=== PATIENT | female | born 2000 | race Caucasian/White ===

== ENCOUNTER 2022-05-23 11:13 | Inpatient (IN) | payer MEDICAID ==
[2022-05-23] MEDS ORDERED: Morphine 4 MG/ML VIAL ONE ×2 (11:54→12:40)
[2022-05-23] MEDS ORDERED: fentaNYL Citrate/PF 100 MCG/2 ML SYRINGE ONE (14:50)
[2022-05-23] MEDS ORDERED: Clindamycin/D5W 900 mg/50 ml Premix Bag ONE (15:07)
[2022-05-23] MEDS ORDERED: Levofloxacin 500 mg/D5W 100 ml Premix Bag ONE (15:07)
[2022-05-23] MEDS ORDERED: Dextrose 5% in Water 1,000 ML IV PRN ×2 (15:08→17:35)
[2022-05-23] MEDS ORDERED: TETANUS, DIPHTHERIA TOX,ADULT (TDVAX) 0.5 ML VIAL IM ONE (15:08)
[2022-05-23] MEDS ORDERED: Dextrose 50% Abboject 50 ML SYRINGE SLOW IVP PRN ×2 (15:08→17:35)
[2022-05-23] MEDS ORDERED: Morphine 2 MG/ML VIAL SLOW IVP PRN ×2 (15:09→17:35)
[2022-05-23] MEDS ORDERED: hydrALAZINE 20 MG/ML VIAL SLOW IVP PRN ×3 (15:09→17:35)
[2022-05-23] MEDS ORDERED: Insulin Regular 300 UNITS/3 ML VIAL SC PRN ×2 (15:09→17:35)
[2022-05-23] MEDS ORDERED: Ondansetron PF 4 MG/2 ML Vial IVP PRN ×3 (15:09→17:35)
[2022-05-23] MEDS ORDERED: Promethazine HCl 25 MG/ML VIAL IM PRN ×4 (15:09→17:35)
[2022-05-23] MEDS ORDERED: traMADol HCl 50 MG TAB PO PRN ×3 (15:11→17:36)
[2022-05-23] MEDS ORDERED: Cyclobenzaprine 10 MG TAB PO PRN (15:11)
[2022-05-23] MEDS ORDERED: Sodium Chloride 0.9% 1,000 ML IV SCH ×2 (15:15)
[2022-05-23] MEDS ORDERED: Ketorolac Tromethamine 30 MG/ML VIAL IVP SCH ×3 (15:15→18:00)
[2022-05-23] MEDS ORDERED: Acetaminophen 325 MG TAB PO SCH ×2 (15:15→17:45)
[2022-05-23] MEDS ORDERED: PROPOFOL 200 MG/20 ML VIAL ONE (15:17)
[2022-05-23] MEDS ORDERED: Ketorolac Tromethamine 30 MG/ML VIAL ONE (15:17)
[2022-05-23] MEDS ORDERED: Ondansetron PF 4 MG/2 ML Vial ONE (15:17)
[2022-05-23] MEDS ORDERED: Promethazine HCl 25 MG/ML VIAL IVPB PRN (17:35)
[2022-05-23] MEDS ORDERED: Ondansetron HCl/PF 4 MG/2 ML Vial IVP PRN (17:35)
[2022-05-23] MEDS ORDERED: Meperidine HCl/PF 25 MG/ML VIAL SLOW IVP PRN (17:35)
[2022-05-23] MEDS ORDERED: Fentanyl 100 MCG/2 ML VIAL ONE ×3 (17:40→19:11)
[2022-05-23] MEDS ORDERED: Meperidine HCl/PF 25 MG/ML VIAL ONE (17:41)
[2022-05-23] MEDS ORDERED: traMADol HCl 50 MG TAB PO SCH ×2 (18:00)
[2022-05-23 18:13] LABS: #Lymphocytes 2.7 thou/uL (1.20-3.40); #Monocytes 0.9 thou/uL (0.11-0.59); #Neutrophils 11.9 thou/uL (1.40-6.50); %Basophils 0.3 % (0.0-1.0); %Eosinophils 0.3 % (0.0-10.0); %Lymphocytes 17.5 % (28.0-48.0); %Monocytes 5.7 % (0.0-4.0); %Neutrophils 76.2 % (31.0-61.0); Hemoglobin 12.4 g/dL (12.0-16.0); Mean Corpuscular HGB CONC 33.7 g/dL (32.0-36.0); Mean Corpuscular Hemoglobin 32.1 pg (25.0-35.0); Mean Corpuscular Volume 95.2 fL (78.0-98.0); Mean Platelet Volume 8.3 fL (7.4-10.4); Platelet Count 315 thou/uL (130-400); RBC Distribution Width 11.7 % (11.5-14.5); Red Blood Cell (RBC) Count 3.86 mill/uL (4.00-5.20); White Blood Cell (WBC) Count 15.5 thou/uL (4.8-10.8)
[2022-05-23] MEDS: Ketorolac Tromethamine 30 MG/ML VIAL IVP SCH ×2 (20:14→22:58)
[2022-05-23] MEDS: Sodium Chloride 0.9% 1,000 ML IV SCH (20:36)
[2022-05-23] MEDS: Acetaminophen 500 MG TAB PO SCH (20:37)
[2022-05-23] MEDS: traMADol HCl 50 MG TAB PO SCH ×2 (20:37→22:59)
[2022-05-23] MEDS: Famotidine/PF 20 mg/2ml Vial SLOW IVP SCH (20:38)
[2022-05-23] MEDS: Morphine 2 MG/ML VIAL SLOW IVP PRN (20:38)
[2022-05-23] MEDS: Cyclobenzaprine 10 MG TAB PO PRN (20:38)
[2022-05-23] MEDS: Senokot S 8.6-50 MG TAB PO SCH (20:38)
[2022-05-23] MEDS: Clindamycin/D5W 900 MG in Premix Bag 1 BAG IVPB SCH (20:45)
[2022-05-23] MEDS ORDERED: Famotidine/PF 20 mg/2ml Vial SLOW IVP SCH ×2 (21:00)
[2022-05-23] MEDS ORDERED: Senokot S 8.6-50 MG TAB PO SCH (21:00)
[2022-05-23 23:49] VITALS: BMI 28.3
[2022-05-24] MEDS ORDERED: TETANUS, DIPHTHERIA TOX,ADULT (TDVAX) 0.5 ML VIAL IM ONE ×2 (00:01→09:00)
[2022-05-24] MEDS: Acetaminophen 500 MG TAB PO SCH ×3 (01:00→12:32)
[2022-05-24] MEDS: Clindamycin/D5W 900 MG in Premix Bag 1 BAG IVPB SCH ×2 (05:24→13:20)
[2022-05-24] MEDS: traMADol HCl 50 MG TAB PO SCH ×2 (05:24→12:32)
[2022-05-24] MEDS: Sodium Chloride 0.9% 1,000 ML IV SCH (05:26)
[2022-05-24] MEDS: Ketorolac Tromethamine 30 MG/ML VIAL IVP SCH ×2 (05:30→12:33)
[2022-05-24 08:00] LABS: #Eosinphils 0.1 thou/uL (0.0-0.7); #Lymphocytes 1.7 thou/uL (1.20-3.40); #Monocytes 1.1 thou/uL (0.11-0.59); #Neutrophils 9.4 thou/uL (1.40-6.50); %Basophils 0.3 % (0.0-1.0); %Eosinophils 0.4 % (0.0-10.0); %Lymphocytes 13.7 % (28.0-48.0); %Neutrophils 76.6 % (31.0-61.0); Hemoglobin 10.8 g/dL (12.0-16.0); Mean Corpuscular HGB CONC 32.4 g/dL (32.0-36.0); Mean Corpuscular Hemoglobin 31.2 pg (25.0-35.0); Mean Corpuscular Volume 96.4 fL (78.0-98.0); Mean Platelet Volume 8.3 fL (7.4-10.4); Platelet Count 248 thou/uL (130-400); RBC Distribution Width 11.7 % (11.5-14.5); Red Blood Cell (RBC) Count 3.47 mill/uL (4.00-5.20); White Blood Cell (WBC) Count 12.3 thou/uL (4.8-10.8)
[2022-05-24 08:03] LABS: Phosphorus 4.3 mg/dL (2.3-4.7)
[2022-05-24 08:05] LABS: Anion Gap 11 mmol/L (10-20); BUN (Urea Nitrogen) 9 mg/dL (7.0-18.7); Calc. Creatinine Clearance 120 mL/min (70-130); Calcium 8.3 mg/dL (7.8-10.44); Carbon Dioxide 23 mmol/L (22-29); Chloride 106 mmol/L (98-107); Estimated GFR 99; Glucose 102 mg/dL (70-105); Magnesium 1.6 mg/dL (1.7-2.2); Potassium 3.6 mmol/L (3.5-5.1); Sodium 136 mmol/L (136-145)
[2022-05-24] MEDS: Famotidine/PF 20 mg/2ml Vial SLOW IVP SCH (08:17)
[2022-05-24] MEDS: Senokot S 8.6-50 MG TAB PO SCH (08:17)
[2022-05-24] MEDS: Morphine 2 MG/ML VIAL SLOW IVP PRN (08:27)
[2022-05-24] MEDS: Cyclobenzaprine 10 MG TAB PO PRN (08:28)
[2022-05-24] MEDS ORDERED: Enoxaparin Sodium 40 MG/0.4 ML SYRINGE SC SCH (09:00)
[2022-05-24] MEDS ORDERED: Polyethylene Glycol 3350 17 GM Packet PO SCH ×3 (09:00)
[2022-05-24 11:56] VITALS: BP 97/66; TEMP 98.5
== END 2022-05-24 15:10 | disposition home or self-care (01) | DRG 494 ==
LOC: ERS 11:13 → SDC/OP 17:00 → SJJU 17:33
PROVIDERS: ADMIT Surgery; ATTEND Surgery
PROC: 0QSH04Z Reposition Left Tibia with Internal Fixation Device, Open Approach (ICD-10-PCS; principal; 2022-05-23)
PROC: 0QSK04Z Reposition Left Fibula with Internal Fixation Device, Open Approach (ICD-10-PCS; 2022-05-23)
DX: S82.302A Unspecified fracture of lower end of left tibia, initial encounter for closed fracture (principal); S82.832A Other fracture of upper and lower end of left fibula, initial encounter for closed fracture; G89.11 Acute pain due to trauma; V00.131A Fall from skateboard, initial encounter; Z88.0 Allergy status to penicillin; Z86.16 Personal history of COVID-19
CPT/HCPCS: 27752; 27781; 36415; 76000; 80048; 83735; 84100; 85025; 90714; 96374; 96376; C1713; C1889; G0390; J1650; J1885; J1956; J2175; J2270; J2405; J2704; J3010; J3490; J7050; S0028